=== PATIENT | female | born 2000 | race Caucasian/White ===

== ENCOUNTER 2021-02-11 04:51 | Inpatient (IN) | payer OTHER ==
[~2021-02-11] VITALS: Ht 165.1 cm; Wt 81.6 kg
[2021-02-11 06:53] LABS: HEMOGLOBIN 11.5 gm/dl (12.3-15.3); RED BLOOD COUNT 4.04 M/UL (4.00-5.10); WHITE BLOOD COUNT 14.4 K/UL (4.5-11.0)
[2021-02-11] MEDS ORDERED: IBUPROFEN600 MG PO (21:47)
[2021-02-11] MEDS ORDERED: DOCUSATE SODIU100 MG PO (21:47)
[2021-02-11] MEDS ORDERED: HYDROCODON-ACE1 EAC4 PO (21:47)
[2021-02-12 06:52] LABS: HEMOGLOBIN 10.9 gm/dl (12.3-15.3)
== END 2021-02-13 14:27 | disposition home or self-care (01) | DRG 807 ==
LOC: GENOP 04:51 → OB 05:24
PROVIDERS: Obstetrics & Gynecology; ADMIT Obstetrics & Gynecology
PROC: 10E0XZZ Delivery of Products of Conception, External Approach (ICD-10-PCS; principal; 2021-02-11)
PROC: 0HQ9XZZ Repair Perineum Skin, External Approach (ICD-10-PCS; 2021-02-11)
PROC: 4A1HXCZ Monitoring of Products of Conception, Cardiac Rate, External Approach (ICD-10-PCS; 2021-02-11)
DX: O76 Abnormality in fetal heart rate and rhythm complicating labor and delivery (principal); Z37.0 Single live birth; Z3A.40 40 weeks gestation of pregnancy; Z20.822 Contact with and (suspected) exposure to COVID-19; O70.0 First degree perineal laceration during delivery
CPT/HCPCS: 36415; 51702; 80307; 81001; 82800; 83518; 85014; 85018; 85025; 90715; G0463; J0595; J2405; J2590; J7120; U0002